=== PATIENT | male | born 1945 | race Caucasian/White ===

== ENCOUNTER 2022-11-30 10:15 | Emergency (ER) | payer OTHER, BC ==
[~2022-11-30] VITALS: Ht 182.9 cm; Wt 86.2 kg
[2022-11-30] MEDS ORDERED: JANTOVEN4 MG (10:20)
[2022-11-30] MEDS ORDERED: NASAL MIST126 ML (10:20)
== END 2022-11-30 12:52 | disposition home or self-care (01) ==
LOC: ER 10:15
DX: S01.81XA Laceration without foreign body of other part of head, initial encounter (principal); W18.39XA Other fall on same level, initial encounter; Y93.89 Activity, other specified; Y92.59 Other trade areas as the place of occurrence of the external cause; Y99.9 Unspecified external cause status; R55 Syncope and collapse